=== PATIENT | male | born 1975 | race Caucasian/White ===

== ENCOUNTER 2022-05-24 22:06 | Inpatient (IN) ==
--- NOTE | 2022-05-24 22:11 | ED.PDOC ---
General ED Provider: Dr. REMIGIO SHARMA MD Chief Complaint: Abdominal Pain Stated Complaint: Patient finished a 10 day course of oral antibiotics two weeks ago for acute diverticulitis. He did well until 3 days ago when he developed recurrent LLQ pain. The pain is constant, does not radiate and is worsened by movement. Denies fever, emesis, hematochezia, diarrhea. His last BM was 3 days ago. Time Seen by Provider: 05/24/22 22:11 Primary Care Provider: RAMAN TAYLOR Nursing and Triage Documentation Reviewed and Agree: Yes Does patient meet sepsis criteria?: No System Inflammatory Response Syndrome: Not Applicable Sepsis Protocol: For patient's 13 years and over: Temp is 96.8 and below OR 101 and greater Pulse >90 BPM Resp >20/minute Acutely Altered Mental Status Are patient's symptoms suggestive of a new infection, such as: -Pneumonia -Skin, Soft Tissue -Endocarditis -UTI -Bone, Joint Infection -Implantable Device -Acute Abdominal Infection -Wound Infection -Meningitis -Blood Stream Catheter Infection -Unknown Review of Systems Review Of Systems Constitutional: Reports No symptoms Eyes: Reports No symptoms Ears, Nose, Mouth, Throat: Reports No symptoms Respiratory: Reports No symptoms Cardiac: Reports No symptoms GI: Reports Abdominal pain and Nausea : Reports Dysuria Musculoskeletal: Reports No symptoms Skin: Reports No symptoms Neurological: Reports No symptoms Endocrine: Reports No symptoms Hematologic/Lymphatic: Reports No symptoms All Other Systems: Reviewed and Negative [facility] Medical History (Updated 05/24/22 @ 23:42 by REMIGIO SHARMA MD) Diverticulitis Social History (Updated 05/24/22 @ 22:13 by MONICA WILSON RN) Smoking and tobacco status: Former smoker Surgical History (Updated 05/24/22 @ 22:13 by MONICA WILSON RN) No history of previous surgery Physical Exam Physical Exam Appearance: Reports Ill-appearing and Well-nourished Ill-appearing: Mild Pain Distress: Mild Eyes: Reports Not Examined ENT: Reports Nose normal and Oropharynx normal Neck: Supple Respiratory: Reports Airway patent, Breath sounds clear and Breath sounds equal Cardiovascular: Reports RRR, No rub and No murmur GI/: Reports Soft, No masses, Bowel sounds normal, No Organomegaly and Tender (Moderate tenderness LLQ with guarding.) Musculoskeletal: Reports Not Examined Skin: Reports Warm and Dry Neurological: Reports Alert and Oriented Psychiatric: Reports Affect appropriate and Mood appropriate Interpretation Radiology Interpretation Radiology Interpretation By: Radiologist Exam Interpreted: CT Scan (uncomplicated sigmoid diverticulitis) Critical Care Note Critical Care Note Total Critical Care Time (mins): 0 Course Course Hematology/Chemistry: 05/24/22 22:34 05/24/22 22:34 Orders, Labs, Meds: Lab Review 05/24/22 05/24/22 05/24/22 22:15 22:34 22:34 WBC 13.07 H RBC 4.89 Hgb 15.2 Hct 43.4 MCV 88.8 MCH 31.1 H MCHC 35.0 RDW Coeff of Shayla 12.5 Plt Count 210 Immature Gran % (Auto) 0.4 Neut % (Auto) 75.9 H Lymph % (Auto) 15.0 [place] % (Auto) 7.5 Eos % (Auto) 0.8 Baso % (Auto) 0.4 Neut # (Auto) 9.9 H Lymph # (Auto) 2.0 [place] # (Auto) 1.0 Eos # (Auto) 0.1 Baso # (Auto) 0.1 Immature Gran # (Auto) 0.1 Sodium 138.3 Potassium 4.00 Chloride 103.5 Carbon Dioxide 27.9 Anion Gap 10.90 BUN 19.4 Creatinine 0.91 Estimated GFR (MDRD) 91.00 BUN/Creatinine Ratio 21.31 Glucose 110.9 H Calcium 9.23 Total Bilirubin 0.63 AST 31.9 ALT 43.3 Alkaline Phosphatase 65.6 Total Protein 7.86 Albumin 4.60 Globulin 3.26 Albumin/Globulin Ratio 1.41 Urine Color Yellow Urine Clarity Clear Urine pH 5.5 Ur Specific [place] 1.025 Urine Protein Negative Urine Glucose (UA) Negative Urine Ketones Negative Urine Blood Negative Urine Nitrite Negative Urine Bilirubin Negative Urine Urobilinogen 0.2 Ur Leukocyte Esterase Negative Orders Category Date Time Status NPO REMINDER: IMAGING ONCE CARE 05/24/22 22:20 Completed Saline Lock [ED IV/MEDIPORT/POWERPORT] .ONCE EMERGENCY 05/24/22 22:19 Active BLOOD CULTURE (ED ONLY) Stat LAB 05/24/22 22:34 Received CBC W/ AUTO DIFF Stat LAB 05/24/22 22:34 Completed CMP [COMPREHENSIVE METABOLIC PANEL] Stat LAB 05/24/22 22:34 Completed SARS COV-2 RNA RAPID LOUIE Stat LAB 05/24/22 Ordered URINALYSIS C & S IF INDICATED Stat LAB 05/24/22 22:15 Completed 0.9 % Sodium Chloride [Saline Flush] MEDS 05/24/22 22:19 Active 1 syr IVF PRN PRN Hydromorphone HCl [Dilaudid 1 mg/ml Syringe] MEDS 05/24/22 22:20 Discontinued 1 mg IVP ONCE ONE Levofloxacin/D5w [Levaquin 750 mg/150 ml D5w] MEDS 05/24/22 22:25 Active 750 mg in 150 ml IV ONCE Metronidazole/Sodium Chloride [Flagyl 500 mg/100 ml] MEDS 05/24/22 22:25 Discontinued 500 mg in 100 ml IV ONCE Ondansetron HCl/Pf [Zofran 4 mg/2 ml] MEDS 05/24/22 22:19 Discontinued 8 mg IVP ONCE STA Sodium Chloride 0.9% [Sodium Chloride] 1,000 ml MEDS 05/24/22 22:[address] ABDOMEN/PELVIS W CONTRAST Stat RADS 05/24/22 22:19 Completed Medications Generic Name Dose Route Start Last Admin Trade Name Freq PRN Reason Stop Dose Admin Levofloxacin/Dextrose 750 mg in 150 mls @ 100 mls/hr 05/24/22 22:25 Levaquin 750 Mg/150 Ml D5w IV 05/24/22 23:54 ONCE ONE Sodium Chloride 1 syr 05/24/22 22:19 0.9% Sodium Chloride 10 Ml Disp.Syrin IVF PRN PRN To flush IV Discontinued Medications Generic Name Dose Route Start Last Admin Trade Name Freq PRN Reason Stop Dose Admin Hydromorphone HCl 1 mg 05/24/22 22:20 05/24/22 22:32 Hydromorphone Hcl 1 Mg/Ml Syringe IVP 05/24/22 22:21 1 mg ONCE ONE Administration Sodium Chloride 1,000 mls @ 1,000 mls/hr 05/24/22 22:19 05/24/22 22:31 Sodium Chloride IV 05/24/22 23:18 1,000 mls/hr BOLUS STA Administration Metronidazole 500 mg in 100 mls @ 100 mls/hr 05/24/22 22:25 05/24/22 22:31 Flagyl 500 Mg/100 Ml IV 05/24/22 23:24 100 mls/hr ONCE ONE Administration Ondansetron HCl 8 mg 05/24/22 22:19 05/24/22 22:32 Ondansetron Hcl/Pf 4 Mg/2 Ml Sdv IVP 05/24/22 22:20 8 mg ONCE STA Administration Vital Signs: Temp Pulse Resp BP Pulse Ox 05/24/22 22:07 99.5 F 92 18 142/96 H 96 Discharge Plan Discharge Patient Disposition: ADMITTED INPATIENT Discharge Problem: Acute diverticulitis of intestine Prescriptions: No Action No Reported Medications 0 Did you review [place] [employer] for ALL controlled substances?: Not Applicable ED Provider: REMIGIO SHARMA Condition: Stable Physician Progress Note: []
[2022-05-24] MEDS ORDERED: ZOFRAN 4 MG/2 ML IVP STA (22:19)
[2022-05-24] MEDS ORDERED: SODIUM CHLORIDE 1,000 ML IV STA (22:19)
[2022-05-24] MEDS ORDERED: DILAUDID 1 MG/ML SYRINGE IVP ONE (22:20)
[2022-05-24] MEDS ORDERED: LEVAQUIN 750 MG/150 ML D5W 750 MG/150 ML BAG IV ONE (22:25)
[2022-05-24] MEDS ORDERED: FLAGYL 500 MG/100 ML 500 MG/100 ML BAG IV ONE (22:25)
[2022-05-24 22:41] LABS: BASOPHILS # (AUTO) 0.1 K/uL (0-0.2); BASOPHILS % (AUTO) 0.4 % (0.0-3.0); EOSINOPHILS # (AUTO) 0.1 K/ul (0.0-0.7); EOSINOPHILS % (AUTO) 0.8 % (0.0-7.0); HEMATOCRIT 43.4 % (42.0-52.0); HEMOGLOBIN 15.2 g/dl (14.0-18.0); IMMATURE GRANULOCYTE # (AUTO) 0.1 (0.0-1.0); IMMATURE GRANULOCYTE % (AUTO) 0.4 % (0.0-5.0); MEAN CORPUSCULAR HEMOGLOBIN 31.1 pg (27.0-31.0); MEAN CORPUSCULAR VOLUME 88.8 fl (80.0-94.0); MONOCYTES % (AUTO) 7.5 (0-10); NEUTROPHILS # (AUTO) 9.9 K/ul (2.0-6.9); NEUTROPHILS % (AUTO) 75.9 % (42.2-75.2); PLATELET COUNT 210 10^3/uL (140-440); RDW COEFFICIENT OF VARIATION 12.5 % (11.6-14.8); RED BLOOD COUNT 4.89 10^6/ul (4.70-6.10); WHITE BLOOD COUNT 13.07 K/ul (4.2-10.2)
[2022-05-24 22:43] LABS: BILIRUBIN,URINE Negative (NEGATIVE); CLARITY,URINE Clear (CLEAR); COLOR,URINE Yellow (YELLOW); GLUCOSE, URINE (UA) Negative (NEGATIVE); KETONES,URINE Negative (NEGATIVE); LEUKOCYTE ESTERASE ,URINE Negative (NEGATIVE); NITRITE,URINE Negative (NEGATIVE); PH,URINE 5.5 (5-9); PROTEIN,URINE Negative (NEGATIVE); URINE, BLOOD Negative (NEGATIVE); UROBILINOGEN,URINE 0.2 (0.2)
[2022-05-24 22:56] LABS: ALANINE AMINOTRANSFERASE 43.3 U/L (0-50); ALBUMIN 4.6 g/dL (3.5-5.0); ALKALINE PHOSPHATASE 65.6 U/L (38-126); ASPARTATE AMINO TRANSFERASE 31.9 U/L (17-59); BILIRUBIN,TOTAL 0.63 mg/dL (0.2-1.3); BLOOD UREA NITROGEN 19.4 mg/dL (9-20); CALCIUM 9.23 mg/dL (8.4-10.2); CARBON DIOXIDE 27.9 mmol/L (22-30.0); CHLORIDE 103.5 mmol/L (98-107); CREATININE 0.91 mg/dL (0.60-1.10); GLUCOSE 110.9 mg/dL (74-106); SODIUM 138.3 mmol/L (134.5-145); TOTAL PROTEIN 7.86 g/dL (6.3-8.2)
--- NOTE | 2022-05-24 23:37 | CT ---
EXAM: CT SCAN ABDOMEN PELVIS WITH CONTRAST HISTORY: Abdominal pain recent history of diverticulitis COMPARISON: None. FINDINGS: Postcontrast helical imaging was obtained through the abdomen pelvis utilizing 5-mm collim ation. Sagittal and coronal reconstructions were imaged and reviewed.. Minimal scarring versus atel ectasis right lung base. Fatty infiltration is seen within the liver. Bladder is fluid filled witho ut cholelithiasis. The pancreas, spleen and adrenal glands have normal enhanced CT appearance. The kidneys excrete contrast in a normal fashion bilaterally. Diverticulitis is seen in the mid sigmoid colon without complication. No free fluid. 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 IMPRESSION: Uncomplicated diverticulitis mid sigmoid colon. Fatty infiltration within the liver. All CT scans are performed using dose optimization techniques as appropriate to the performed exam an d include at least one of the following: Automated exposure control, adjustment of the mA and/or kV according t o size, and the use of iterative reconstruction technique.
[2022-05-24] MEDS ORDERED: ZOFRAN 4 MG/2 ML IVP PRN (23:46)
--- NOTE | 2022-05-24 23:55 | PCM ---
Chief Complaint Chief Complaint: lower abdominal pain History of Present Illness History of Present Illness: Patient recently treated for acute sigmoid diverticulitis. He completed a 10 day outpatient course of flagyl and what sounds to be levaquin. Patient did well until 3 days ago when he again developed LLQ abd pain that has progressively worsened. CT abd/pelvis demonstrated uncomplicated acute sigmoid diverticulitis. Review of Systems Constitutional: Reports No symptoms Eyes: Reports No symptoms Ears: Reports No symptoms Nose: Reports No symptoms Throat: Reports No symptoms Mouth: Reports No symptoms Respiratory: Reports No symptoms Cardiovascular: Reports No symptoms Gastrointestinal: Reports Abdominal pain and Nausea Genitourinary: Reports dysuria Neurological: Reports No symptoms Musculoskeletal: Reports No symptoms Skin: Reports No symptoms Immunology: Reports No symptoms Hematology: Reports No symptoms Endocrine: Reports No symptoms Psychiatric: Reports No symptoms Habits: Reports Tobacco use Allergies Allergies Allergy/AdvReac Type Severity Reaction Status Date / Time No Known Allergies Allergy Unverified 09/17/13 15:58 [facility] Medical History (Updated 05/24/22 @ 23:42 by REMIGIO SHARMA MD) Diverticulitis Surgical History (Updated 05/24/22 @ 22:13 by MONICA WILSON RN) No history of previous surgery Social History (Updated 05/24/22 @ 22:13 by MONICA WILSON RN) Smoking and tobacco status: Former smoker Medications Medications: Medications Generic Name Dose Route Start Last Admin Trade Name Freq PRN Reason Stop Dose Admin Levofloxacin/Dextrose 750 mg in 150 mls @ 100 mls/hr 05/24/22 22:25 Levaquin 750 Mg/150 Ml D5w IV 05/24/22 23:54 ONCE ONE Sodium Chloride 1 syr 05/24/22 22:19 0.9% Sodium Chloride 10 Ml Disp.Syrin IVF PRN PRN To flush IV Body Composition Height: 5 ft 10 in Weight: 112.207 kg Body Mass Index (BMI): 35.4 Vital Signs Temperature: 99.5 F Pulse Rate: 92 Respiratory Rate: 18 Blood Pressure: 142/96 O2 Sat by Pulse Oximetry: 96 Physical Examination Appearance: Reports Ill-appearing and Well-nourished Ill-appearing: Moderate Pain Distress: Moderate Eyes: Reports Not Examined ENT: Reports Nose normal, Oropharynx normal and Dry mucosa Neck: Supple Respiratory: Reports Airway patent, Breath sounds clear and Breath sounds equal Cardiovascular: Reports RRR, No rub and No murmur GI/: Reports Soft, No masses, Bowel sounds normal and Tender (Moderate LLQ tenderness with guarding.) Musculoskeletal: Reports Normal strength, ROM intact and No edema Skin: Reports Warm, Dry and Normal color Neurological: Reports Alert and Oriented Psychiatric: Reports Affect appropriate and Mood appropriate Lab/Tests/Diagnostic Imaging Lab/Tests/Diagnostic Imaging: Lab Review 05/24/22 05/24/22 05/24/22 22:15 22:34 22:34 WBC 13.07 H RBC 4.89 Hgb 15.2 Hct 43.4 MCV 88.8 MCH 31.1 H MCHC 35.0 RDW Coeff of Shayla 12.5 Plt Count 210 Immature Gran % (Auto) 0.4 Neut % (Auto) 75.9 H Lymph % (Auto) 15.0 [place] % (Auto) 7.5 Eos % (Auto) 0.8 Baso % (Auto) 0.4 Neut # (Auto) 9.9 H Lymph # (Auto) 2.0 [place] # (Auto) 1.0 Eos # (Auto) 0.1 Baso # (Auto) 0.1 Immature Gran # (Auto) 0.1 Sodium 138.3 Potassium 4.00 Chloride 103.5 Carbon Dioxide 27.9 Anion Gap 10.90 BUN 19.4 Creatinine 0.91 Estimated GFR (MDRD) 91.00 BUN/Creatinine Ratio 21.31 Glucose 110.9 H Calcium 9.23 Total Bilirubin 0.63 AST 31.9 ALT 43.3 Alkaline Phosphatase 65.6 Total Protein 7.86 Albumin 4.60 Globulin 3.26 Albumin/Globulin Ratio 1.41 Urine Color Yellow Urine Clarity Clear Urine pH 5.5 Ur Specific [place] 1.025 Urine Protein Negative Urine Glucose (UA) Negative Urine Ketones Negative Urine Blood Negative Urine Nitrite Negative Urine Bilirubin Negative Urine Urobilinogen 0.2 Ur Leukocyte Esterase Negative Orders Category Date Time Status ADMIT PATIENT INPATIENT .TO [facility] (NON-MONITORED ADMISSION 05/24/22 23:46 Ordered BED) ACTIVITY .Up ad Leti CARE 05/24/22 23:46 Ordered INTAKE & OUTPUT Q8HR CARE 05/24/22 23:46 Ordered IP: INSERT SALINE LOCK ONCE CARE 05/24/22 23:46 Ordered NPO REMINDER: IMAGING ONCE CARE 05/24/22 22:20 Completed VITAL SIGNS Q4HR CARE 05/24/22 23:47 Ordered VITAL SIGNS Q8HR CARE 05/24/22 23:46 Ordered SOFT LOW FIBER DIETARY 05/24/22 Breakfast Ordered Saline Lock [ED IV/MEDIPORT/POWERPORT] .ONCE EMERGENCY 05/24/22 22:19 Active BLOOD CULTURE (ED ONLY) Stat LAB 05/24/22 22:34 Received CBC W/ AUTO DIFF Stat LAB 05/24/22 22:34 Completed CMP [COMPREHENSIVE METABOLIC PANEL] Stat LAB 05/24/22 22:34 Completed SARS COV-2 RNA RAPID LOUIE Stat LAB 05/24/22 Ordered URINALYSIS C & S IF INDICATED Stat LAB 05/24/22 22:15 Completed 0.9 % Sodium Chloride [Saline Flush] MEDS 05/24/22 22:19 Active 1 syr IVF PRN PRN 500 mg IV Q8hr [facility] MEDS 05/25/22 05:00 Ordered Metronidazole/Sodium Chloride [Flagyl 500 mg/100 ml] 500 mg in 100 ml IV Q8HR 750 mg IV Daily [facility] MEDS 05/25/22 09:00 Ordered Levofloxacin/D5w [Levaquin 750 mg/150 ml D5w] 750 mg in 150 ml IV DAILY Hydromorphone HCl [Dilaudid 1 mg/ml Syringe] MEDS 05/24/22 22:20 Discontinued 1 mg IVP ONCE ONE Hydromorphone HCl [Dilaudid 1 mg/ml Syringe] MEDS 05/24/22 23:46 Ordered 1 mg IVP Q4HR PRN Levofloxacin/D5w [Levaquin 750 mg/150 ml D5w] MEDS 05/24/22 22:25 Active 750 mg in 150 ml IV ONCE Metronidazole/Sodium Chloride [Flagyl 500 mg/100 ml] MEDS 05/24/22 22:25 Discontinued 500 mg in 100 ml IV ONCE Ondansetron HCl/Pf [Zofran 4 mg/2 ml] MEDS 05/24/22 22:19 Discontinued 8 mg IVP ONCE STA Ondansetron HCl/Pf [Zofran 4 mg/2 ml] MEDS 05/24/22 23:46 Ordered 8 mg IVP Q8H PRN Sodium Chloride 0.9% [Sodium Chloride] 1,000 ml MEDS 05/24/22 23:45 Ordered IV 125 mls/hr Sodium Chloride 0.9% [Sodium Chloride] 1,000 ml MEDS 05/24/22 22:19 Discontinued IV BOLUS RESUSCITATION STATUS Routine OTHERS 05/24/22 23:[address] ABDOMEN/PELVIS W CONTRAST Stat RADS 05/24/22 22:19 Completed Medications Generic Name Dose Route Start Last Admin Trade Name Freq PRN Reason Stop Dose Admin Levofloxacin/Dextrose 750 mg in 150 mls @ 100 mls/hr 05/24/22 22:25 Levaquin 750 Mg/150 Ml D5w IV 05/24/22 23:54 ONCE ONE Sodium Chloride 1 syr 05/24/22 22:19 0.9% Sodium Chloride 10 Ml Disp.Syrin IVF PRN PRN To flush IV Discontinued Medications Generic Name Dose Route Start Last Admin Trade Name Freq PRN Reason Stop Dose Admin Hydromorphone HCl 1 mg 05/24/22 22:20 05/24/22 22:32 Hydromorphone Hcl 1 Mg/Ml Syringe IVP 05/24/22 22:21 1 mg ONCE ONE Administration Sodium Chloride 1,000 mls @ 1,000 mls/hr 05/24/22 22:19 05/24/22 22:31 Sodium Chloride IV 05/24/22 23:18 1,000 mls/hr BOLUS STA Administration Metronidazole 500 mg in 100 mls @ 100 mls/hr 05/24/22 22:25 05/24/22 22:31 Flagyl 500 Mg/100 Ml IV 05/24/22 23:24 100 mls/hr ONCE ONE Administration Ondansetron HCl 8 mg 05/24/22 22:19 05/24/22 22:32 Ondansetron Hcl/Pf 4 Mg/2 Ml Sdv IVP 05/24/22 22:20 8 mg ONCE STA Administration Assessment (1) Acute diverticulitis of intestine: Status: Acute Code(s): K57.92 - Diverticulitis of intestine, part unspecified, without perforation or abscess without bleeding SNOMED Code(s): 170128097 Plan Plan: Patient will be admitted for IV antibiotic therapy, pain control and IV fluid hydration.
[2022-05-24 23:57] LABS: SARS COV-2 RNA RAPID NAAT NEGATIVE (NEGATIVE)
[2022-05-25] MEDS: SODIUM CHLORIDE 1,000 ML IV SCH ×3 (01:19→18:42)
[2022-05-25 01:20] VITALS: BMI 34.9
[2022-05-25] MEDS: DILAUDID 1 MG/ML SYRINGE IVP PRN ×4 (02:11→18:41)
[2022-05-25] MEDS: FLAGYL 500 MG/100 ML 500 MG/100 ML BAG IV SCH ×3 (04:26→20:43)
--- NOTE | 2022-05-25 08:42 | PCM.PROG ---
Date Seen by Provider: 05/25/22 Time Seen by Provider: 07:35 Subjective: Some lower abdominal pains during the night. Had small BM and urinated since. Says he had a colonoscopy scheduled at [facility] this coming week.Explained he will needto contact them on friday and update the office on his current admission and schedule an office follow up with GI. This is his third episode : September last year, May 06, & current .Was symptom free after this past 10 day treatment then three days ago sx recurred. No current black or bloody stools, fever , chills ,nausea / vomiting treatment recurred after completion of oral antibiotics levaquin and flagyl po . Discussed I would repeat labs today to assess WBC and chemistries after receiving meds and fluids. .Discussed probiotics and omeprazole for GI protection , lovenox for dvt prevention ( no hx of any bleeding occurrances or recent surgery ), continuation of IV fluids for hydration and IV antibiotics. Objective: Vitals: T=97.0 F, P=64, R=18, JP=655/70, SPO2=96 HEENT: [speech normal, no icterus, head normocephalic ] Neck: [no pain no jvd] Lungs: [clear bilaterally ] CVS: [regular no murmur ] Abdomen: [bs present . Tenderness suprapubic. No rigidity This is where he experienced diverticulitis in the past and in past was attributed to a uti ] Extremities: [no edema or pain ] Neurological: [alert / oriented x3 ] Skin: [no rash ] Lab/Tests/Diagnostic Imaging: [CT a/p with contrast showed mid colon diverticulitis no perf , fluid or absess or obstruction, fatty infiltration , glucose 110 ] (1) Acute diverticulitis of intestine: Status: Acute Code(s): K57.92 - Diverticulitis of intestine, part unspecified, without perforation or abscess without bleeding SNOMED Code(s): 064367928 (2) Fatty infiltration of liver: Status: Acute Code(s): K76.0 - Fatty (change of) liver, not elsewhere classified SNOMED Code(s): 519630101 Assessment: obesity (3) Obesity (BMI 30.0-34.9): Status: Acute Code(s): E66.9 - Obesity, unspecified SNOMED Code(s): 693806350648695 Plan: 1.Diverticulitis : IV levaquin 750 mg daily / flagyl 500mg IV qid 2.Pain - dilaudid 1 mg IV q 6 hrs prn ( reduced from q 4 hrs ) 3.GI -probiotic bid 4.GI - 0meprazole 30mg po daily 5.DVT prophylaxis - lovenox 40mg subq daily 6.AM 2/11 lab CBC ,cmp , ( trend wbc and chemistries ) lipid panel , hemoglobin A1C ( A1C for glucos / liver , lipid for liver ) 7.Hydration NS 125/hr ( GI infection ) 8. Report to Dr. Jacome at shift change
[2022-05-25] MEDS ORDERED: ZOFRAN 4 MG/2 ML IVP PRN (09:25)
[2022-05-25 09:41] LABS: BASOPHILS % (AUTO) 0.4 % (0.0-3.0); EOSINOPHILS # (AUTO) 0.1 K/ul (0.0-0.7); EOSINOPHILS % (AUTO) 0.8 % (0.0-7.0); HEMATOCRIT 42.3 % (42.0-52.0); HEMOGLOBIN 14.7 g/dl (14.0-18.0); IMMATURE GRANULOCYTE % (AUTO) 0.4 % (0.0-5.0); LYMPHOCYTES # (AUTO) 1.5 K/uL (0.60-3.4); LYMPHOCYTES % (AUTO) 13.2 (10.0-50.0); MEAN CORPUSCULAR HEMOGLOBIN 31.1 pg (27.0-31.0); MEAN CORPUSCULAR HGB CONC 34.8 (31.8-35.4); MEAN CORPUSCULAR VOLUME 89.4 fl (80.0-94.0); MONOCYTES # (AUTO) 0.9 K/uL (0.4-2.0); MONOCYTES % (AUTO) 7.8 (0-10); NEUTROPHILS # (AUTO) 8.7 K/ul (2.0-6.9); NEUTROPHILS % (AUTO) 77.4 % (42.2-75.2); PLATELET COUNT 185 10^3/uL (140-440); RDW COEFFICIENT OF VARIATION 12.4 % (11.6-14.8); RED BLOOD COUNT 4.73 10^6/ul (4.70-6.10)
[2022-05-25 09:51] LABS: ALANINE AMINOTRANSFERASE 34.4 U/L (0-50); ALBUMIN 4.18 g/dL (3.5-5.0); ALKALINE PHOSPHATASE 62.2 U/L (38-126); ASPARTATE AMINO TRANSFERASE 22.2 U/L (17-59); BILIRUBIN,TOTAL 0.9 mg/dL (0.2-1.3); CALCIUM 8.6 mg/dL (8.4-10.2); CARBON DIOXIDE 27.6 mmol/L (22-30.0); CHLORIDE 103.5 mmol/L (98-107); CREATININE 0.97 mg/dL (0.60-1.10); GLUCOSE 109.8 mg/dL (74-106); POTASSIUM 4.14 mmol/L (3.5-5.1); SODIUM 136.8 mmol/L (134.5-145); TOTAL PROTEIN 7.17 g/dL (6.3-8.2)
[2022-05-25] MEDS: PRILOSEC PO SCH (10:00)
[2022-05-25] MEDS: FLORASTOR PO SCH ×2 (10:00→20:42)
[2022-05-25] MEDS: LOVENOX SUBCUT SCH (10:00)
[2022-05-25] MEDS: LEVAQUIN 750 MG/150 ML D5W 750 MG/150 ML BAG IV SCH (22:07)
[2022-05-26] MEDS: DILAUDID 1 MG/ML SYRINGE IVP PRN ×4 (03:32→22:41)
[2022-05-26] MEDS: FLAGYL 500 MG/100 ML 500 MG/100 ML BAG IV SCH ×3 (05:31→20:09)
[2022-05-26] MEDS: PRILOSEC PO SCH (05:31)
[2022-05-26 05:38] LABS: BASOPHILS % (AUTO) 0.4 % (0.0-3.0); EOSINOPHILS # (AUTO) 0.1 K/ul (0.0-0.7); EOSINOPHILS % (AUTO) 0.9 % (0.0-7.0); HEMATOCRIT 39.8 % (42.0-52.0); HEMOGLOBIN 13.5 g/dl (14.0-18.0); IMMATURE GRANULOCYTE % (AUTO) 0.3 % (0.0-5.0); LYMPHOCYTES # (AUTO) 1.4 K/uL (0.60-3.4); LYMPHOCYTES % (AUTO) 15.5 (10.0-50.0); MEAN CORPUSCULAR HEMOGLOBIN 30.5 pg (27.0-31.0); MEAN CORPUSCULAR HGB CONC 33.9 (31.8-35.4); MEAN CORPUSCULAR VOLUME 89.8 fl (80.0-94.0); MONOCYTES # (AUTO) 0.7 K/uL (0.4-2.0); MONOCYTES % (AUTO) 7.1 (0-10); NEUTROPHILS # (AUTO) 7.1 K/ul (2.0-6.9); NEUTROPHILS % (AUTO) 75.8 % (42.2-75.2); PLATELET COUNT 173 10^3/uL (140-440); RDW COEFFICIENT OF VARIATION 12.2 % (11.6-14.8); RED BLOOD COUNT 4.43 10^6/ul (4.70-6.10); WHITE BLOOD COUNT 9.32 K/ul (4.2-10.2)
[2022-05-26 05:52] LABS: ALANINE AMINOTRANSFERASE 29.2 U/L (0-50); ALBUMIN 3.99 g/dL (3.5-5.0); ALKALINE PHOSPHATASE 58.2 U/L (38-126); ASPARTATE AMINO TRANSFERASE 20.6 U/L (17-59); BILIRUBIN,TOTAL 0.72 mg/dL (0.2-1.3); BLOOD UREA NITROGEN 11.8 mg/dL (9-20); CALCIUM 8.53 mg/dL (8.4-10.2); CARBON DIOXIDE 25.3 mmol/L (22-30.0); CHOLESTEROL 201.8 mg/dL (0-200); CREATININE 0.96 mg/dL (0.60-1.10); GLUCOSE 112.1 mg/dL (74-106); POTASSIUM 4.26 mmol/L (3.5-5.1); SODIUM 137.8 mmol/L (134.5-145); TOTAL PROTEIN 7.03 g/dL (6.3-8.2); TRIGLYCERIDES 67.4 mg/dL (0-150)
[2022-05-26] MEDS: SODIUM CHLORIDE 1,000 ML IV SCH ×2 (06:42→15:47)
[2022-05-26] MEDS: FLORASTOR PO SCH ×2 (09:18→20:09)
[2022-05-26] MEDS: LOVENOX SUBCUT SCH (09:18)
[2022-05-26] MEDS ORDERED: DULCOLAX PO PRN (10:25)
--- NOTE | 2022-05-26 12:11 | PCM.PROG ---
Date Seen by Provider: 05/26/22 Time Seen by Provider: 12:10 Subjective: Better appetite today , some constipation ( has had also in past ) , less suprapubic pain today.Is motivated to changing diet. Wanting to meet with drafter civil to reduce reoccurance of diverticulosis ( Consult already written) wbc 9.3, BC prelim neg , glu 112 , AiC 5.4 Objective: Vitals: T=96.7 F, P=69, R=18, HO=356/67, SPO2=97 HEENT: [no icterus, speech normal ] Neck: [supple] Lungs: [clear ] CVS: [regular] Abdomen: [bs present . less tender today over suprapubic ] Extremities: [no edema] Neurological: [alert oriented times 3 ] Skin: [no rash ] Lab/Tests/Diagnostic Imaging: [wbc 9.3, BC prelim neg , glu 112 , AiC 5.4] (1) Acute diverticulitis of intestine: Status: Acute Code(s): K57.92 - Diverticulitis of intestine, part unspecified, without perforation or abscess without bleeding SNOMED Code(s): 566975111 (2) Fatty infiltration of liver: Status: Acute Code(s): K76.0 - Fatty (change of) liver, not elsewhere classified SNOMED Code(s): 708349972 (3) Obesity (BMI 30.0-34.9): Status: Acute Code(s): E66.9 - Obesity, unspecified SNOMED Code(s): 278873843306590 Plan: 1.Prevention - pt to meet with drafter civil 2.DVT - lovenox 3 GI -omeprazole 4.Diverticulitis - Levaquin& flagyl IV - consider de-escalation to oral day #4-5 5.Constipation - add dulcolax 6.Labs - procal for antibiotic descalation guidance , cbc , bmp 7.GI - will need GI follow up as colonoscopy ws scheduled for this week as outpatient [address] Gutierrez at shift change
[2022-05-26] MEDS: LEVAQUIN 750 MG/150 ML D5W 750 MG/150 ML BAG IV SCH (21:16)
[2022-05-27] MEDS: SODIUM CHLORIDE 1,000 ML IV SCH (03:12)
[2022-05-27 05:13] VITALS: BP 129/79; TEMP 97.1
[2022-05-27] MEDS: FLAGYL 500 MG/100 ML 500 MG/100 ML BAG IV SCH (05:19)
[2022-05-27] MEDS: PRILOSEC PO SCH (05:34)
[2022-05-27 05:35] LABS: BASOPHILS # (AUTO) 0.1 K/uL (0-0.2); BASOPHILS % (AUTO) 0.7 % (0.0-3.0); EOSINOPHILS # (AUTO) 0.1 K/ul (0.0-0.7); EOSINOPHILS % (AUTO) 1.9 % (0.0-7.0); HEMATOCRIT 40.1 % (42.0-52.0); HEMOGLOBIN 13.6 g/dl (14.0-18.0); IMMATURE GRANULOCYTE % (AUTO) 0.3 % (0.0-5.0); LYMPHOCYTES # (AUTO) 1.6 K/uL (0.60-3.4); LYMPHOCYTES % (AUTO) 23.2 (10.0-50.0); MEAN CORPUSCULAR HEMOGLOBIN 30.4 pg (27.0-31.0); MEAN CORPUSCULAR HGB CONC 33.9 (31.8-35.4); MEAN CORPUSCULAR VOLUME 89.7 fl (80.0-94.0); MONOCYTES # (AUTO) 0.6 K/uL (0.4-2.0); MONOCYTES % (AUTO) 9.4 (0-10); NEUTROPHILS # (AUTO) 4.4 K/ul (2.0-6.9); NEUTROPHILS % (AUTO) 64.5 % (42.2-75.2); PLATELET COUNT 172 10^3/uL (140-440); RDW COEFFICIENT OF VARIATION 12.2 % (11.6-14.8); RED BLOOD COUNT 4.47 10^6/ul (4.70-6.10); WHITE BLOOD COUNT 6.82 K/ul (4.2-10.2)
[2022-05-27 05:57] LABS: BLOOD UREA NITROGEN 12.5 mg/dL (9-20); CALCIUM 8.94 mg/dL (8.4-10.2); CARBON DIOXIDE 26.8 mmol/L (22-30.0); CHLORIDE 105.7 mmol/L (98-107); CREATININE 1.04 mg/dL (0.60-1.10); GLUCOSE 106.3 mg/dL (74-106); POTASSIUM 4.23 mmol/L (3.5-5.1)
[2022-05-27] MEDS: FLORASTOR PO SCH (08:33)
[2022-05-27] MEDS: LOVENOX SUBCUT SCH (08:35)
--- NOTE | 2022-05-27 09:05 | PCM.PROG ---
Date Seen by Provider: 05/27/22 Time Seen by Provider: 08:50 Subjective: Patient feeling much better. Tolerating diet. Having normal BMs. Not requiring narcotic analgesics. Objective: Vitals: T=97.1 F, P=57, R=18, EW=337/79, SPO2=98 Patient alert and in NAD. Appears well. HEENT: [] Oral mucosa moist. Neck: [] Lungs: [] Chest clear. BS equal. CVS: [] RRR Abdomen: [] Soft and nontender. Extremities: [] Neurological: [] Skin: [] Lab/Tests/Diagnostic Imaging: [] (1) Acute diverticulitis of intestine: Status: Acute Code(s): K57.92 - Diverticulitis of intestine, part unspecified, without perforation or abscess without bleeding SNOMED Code(s): 456110708 Assessment: Much improved. (2) Fatty infiltration of liver: Status: Acute Code(s): K76.0 - Fatty (change of) liver, not elsewhere classified SNOMED Code(s): 142669626 (3) Obesity (BMI 30.0-34.9): Status: Acute Code(s): E66.9 - Obesity, unspecified SNOMED Code(s): 883972864947585 Plan: Discharge patient on flagyl and levaquin. Follow up with Dr Jacome in one week.
--- NOTE | 2022-05-27 09:08 | PCM.DC ---
Final Diagnosis: acute sigmoid diverticulitis Physical Exam Appearance: Well-appearing, No pain distress and Well-nourished Ill-appearing: None Pain Distress: None Eyes: Not Examined ENT: Nose normal and Oropharynx normal Neck: Supple Respiratory: Airway patent, Breath sounds clear and Breath sounds equal Cardiovascular: No rub and No murmur GI/: Soft, Nontender, No masses, Bowel sounds normal and No Organomegaly Musculoskeletal: Normal strength, ROM intact and No edema Skin: Warm, Dry and Normal color Neurological: Motor intact, Alert and Oriented Psychiatric: Affect appropriate and Mood appropriate (1) Acute diverticulitis of intestine: Status: Acute Code(s): K57.92 - Diverticulitis of intestine, part unspecified, without perforation or abscess without bleeding SNOMED Code(s): 008208821 (2) Fatty infiltration of liver: Status: Acute Code(s): K76.0 - Fatty (change of) liver, not elsewhere classified SNOMED Code(s): 441380368 (3) Obesity (BMI 30.0-34.9): Status: Acute Code(s): E66.9 - Obesity, unspecified SNOMED Code(s): 105039680674144 Reason for Hospitalization: Patient admitted with acute sigmoid diverticulitis. He failed outpatient oral antibiotic therapy for this. Prognosis/Condition at Discharge: Condition at discharge was good. Medications at Discharge: Patient discharged on flagyl and levaquin in addition to his prior preadmission medications. Lab/Diagnostics: CT abd/pelvis demonstrated noncomplicated acute sigmoid diverticulitis. WBC was normal at discharge. Education Provided to Patient and Family: acute diverticulitis Follow-ups: Follow up with Dr Jacome in one week. Discharge Disposition: Home Hospital Course: Patient admitted with noncomplicated acute sigmoid diverticulitis that failed to resolve on outpatient oral antibiotics. He was treated with IV flagyl and IV levaquin. Patient demonstrated good clinical response and was discharged on the 3rd postadmission day in good condition. Plan: Follow up with Dr Jacome in one week.
== END 2022-05-27 09:45 | disposition home or self-care (01) | DRG 392 ==
LOC: ED 22:06 → MEDSURG A 05-25
PROVIDERS: ADMIT Surgery; ATTEND Surgery
DX: K57.92 Diverticulitis of intestine, part unspecified, without perforation or abscess without bleeding; Z79.899 Other long term (current) drug therapy; K76.0 Fatty (change of) liver, not elsewhere classified; Z51.81 Encounter for therapeutic drug level monitoring; Z20.822 Contact with and (suspected) exposure to COVID-19; E66.9 Obesity, unspecified

== ENCOUNTER 2022-06-05 20:08 | Inpatient (IN) ==
[2022-06-05] MEDS ORDERED: DILAUDID 1 MG/ML SYRINGE IVP STA (20:46)
[2022-06-05] MEDS ORDERED: TORADOL IVP STA (20:46)
[2022-06-05] MEDS ORDERED: SODIUM CHLORIDE 1,000 ML IV STA (20:46)
--- NOTE | 2022-06-05 20:52 | ED.PDOC ---
General ED Provider: Dr. JING KAPOOR Chief Complaint: Fever Stated Complaint: Patient is a 46-year-old who comes to the ER with lower mid abdominal pain. Was seen recently and treated for Diverticulitis with antibiotics. has seen a GI doctor and is scheduled to get a colonoscopy in June. States the pain came back today and is severe. Time Seen by Provider: 06/05/22 20:46 Mode of Arrival: Walk-In Information Source: Patient Primary Care Provider: RAMAN TAYLOR Nursing and Triage Documentation Reviewed and Agree: Yes Does patient meet sepsis criteria?: No System Inflammatory Response Syndrome: Not Applicable Sepsis Protocol: For patient's 13 years and over: Temp is 96.8 and below OR 101 and greater Pulse >90 BPM Resp >20/minute Acutely Altered Mental Status Are patient's symptoms suggestive of a new infection, such as: -Pneumonia -Skin, Soft Tissue -Endocarditis -UTI -Bone, Joint Infection -Implantable Device -Acute Abdominal Infection -Wound Infection -Meningitis -Blood Stream Catheter Infection -Unknown GI Complaint Exam Abdominal Pain Complaint/Exam Onset: Gradual Duration: one day Symptoms Are: Still present Timing: Constant Initial Severity: Moderate Current Severity: Severe Location of Pain: LLQ and Suprapubic Character: Reports Dull and Aching Aggravating: Reports Movement Alleviating: Reports None Associated Signs and Symptoms: Reports Constipation; Denies Nausea, Vomiting or Diarrhea Review of Systems Review Of Systems Constitutional: Reports No symptoms Eyes: Reports No symptoms Ears, Nose, Mouth, Throat: Reports No symptoms Respiratory: Reports No symptoms GI: Reports Abdominal pain and Constipated : Denies Dysuria, Frequency or Flank pain Skin: Reports No symptoms Neurological: Reports Anxiety Hematologic/Lymphatic: Reports No symptoms All Other Systems: Reviewed and Negative [facility] Medical History (Updated 06/05/22 @ 22:33 by JING KAPOOR MD) Diverticulitis Gout Leaky heart valve Family History FATHER COPD (chronic obstructive pulmonary disease) Social History (Updated 06/05/22 @ 20:27 by GIN KARIMI LPN) Smoking and tobacco status: Former smoker Alcohol intake: current Alcohol intake frequency: a few times a month Alcohol type: wine Surgical History (Updated 06/05/22 @ 20:26 by GIN KARIMI LPN) History of vasectomy Physical Exam Physical Exam Appearance: Reports Ill-appearing Ill-appearing: Mild Pain Distress: Severe Eyes: Reports GEORGETTE, EOMI and Conjunctiva clear ENT: Reports Nose normal and Oropharynx normal Neck: Supple Respiratory: Reports Airway patent, Breath sounds clear, Breath sounds equal and Respirations nonlabored Cardiovascular: Reports No rub and Tachycardia GI/: Reports Soft and Tender Musculoskeletal: Reports Normal strength and ROM intact Skin: Reports Warm and Dry Neurological: Reports Motor intact, Alert and Oriented Psychiatric: Reports Anxious Interpretation Radiology Interpretation Radiology Interpretation By: Radiologist Radiology Results: Positive (1. Diverticulosis of the descending colon and sigmoid colon. Diffuse thickening of the wall of the mid sigmoid colon with marked adjacent mesenteric edema. Microperforation with gas bubble measuring 4 mm. The appearance is worse than seen on 05/24/2022. This is likely due to diverticulitis. Ne) Exam Interpreted: CT Scan Physician Notification Case Discussed Physician Notified: Surgeon Dr Calzada at [facility] Time of Notification: 22:00 (not a surgical candidate, can be managed medically due to small size of microperforation. ) Critical Care Note Critical Care Note Total Critical Care Time (mins): 0 Course Course Hematology/Chemistry: 06/05/22 20:54 06/05/22 20:54 Orders, Labs, Meds: Lab Review 06/05/22 06/05/22 06/05/22 20:54 20:54 21:15 WBC 14.86 H RBC 4.67 L Hgb 14.4 Hct 41.5 L MCV 88.9 MCH 30.8 MCHC 34.7 RDW Coeff of Shayla 12.5 Plt Count 232 Immature Gran % (Auto) 0.4 Neut % (Auto) 83.2 H Lymph % (Auto) 9.4 L [place] % (Auto) 6.4 Eos % (Auto) 0.2 Baso % (Auto) 0.4 Neut # (Auto) 12.4 H Lymph # (Auto) 1.4 [place] # (Auto) 1.0 Eos # (Auto) 0.0 Baso # (Auto) 0.1 Immature Gran # (Auto) 0.1 Sodium 138.1 Potassium 4.14 Chloride 102.2 Carbon Dioxide 29.4 Anion Gap 10.64 BUN 17.9 Creatinine 1.04 Estimated GFR (MDRD) 78.00 BUN/Creatinine Ratio 17.21 Glucose 118.7 H Calcium 8.96 Total Bilirubin 0.61 AST 23.6 ALT 23.5 Alkaline Phosphatase 62.9 Total Protein 7.43 Albumin 4.38 Globulin 3.05 Albumin/Globulin Ratio 1.43 Amylase 63.7 Lipase 50.2 Urine Color Urine Clarity Urine pH Ur Specific [place] Urine Protein Urine Glucose (UA) Urine Ketones Urine Blood Urine Nitrite Urine Bilirubin Urine Urobilinogen Ur Leukocyte Esterase SARS CoV-2 RNA Rapid LOUIE Negative 06/05/22 21:51 WBC RBC Hgb Hct MCV MCH MCHC RDW Coeff of Shayla Plt Count Immature Gran % (Auto) Neut % (Auto) Lymph % (Auto) [place] % (Auto) Eos % (Auto) Baso % (Auto) Neut # (Auto) Lymph # (Auto) [place] # (Auto) Eos # (Auto) Baso # (Auto) Immature Gran # (Auto) Sodium Potassium Chloride Carbon Dioxide Anion Gap BUN Creatinine Estimated GFR (MDRD) BUN/Creatinine Ratio Glucose Calcium Total Bilirubin AST ALT Alkaline Phosphatase Total Protein Albumin Globulin Albumin/Globulin Ratio Amylase Lipase Urine Color Yellow Urine Clarity Clear Urine pH 5.5 Ur Specific [place] >=1.030 Urine Protein Negative Urine Glucose (UA) Negative Urine Ketones Trace H Urine Blood Negative Urine Nitrite Negative Urine Bilirubin Negative Urine Urobilinogen 0.2 Ur Leukocyte Esterase Negative SARS CoV-2 RNA Rapid LOUIE Orders Category Date Time Status ADMIT PATIENT INPATIENT .TO [facility] (MONITORED BED) ADMISSION 06/05/22 22:42 Active ACTIVITY .Up ad Leti CARE 06/05/22 22:44 Active INTAKE & OUTPUT Q8HR CARE 06/05/22 22:42 Active TELEMETRY MONITORING TELE CARE 06/05/22 22:43 Active VITAL SIGNS Q4HR CARE 06/05/22 22:43 Active REGULAR DIET DIETARY 06/05/22 Breakfast Ordered ED IV/MEDIPORT/POWERPORT .ONCE EMERGENCY 06/05/22 20:46 Active AMYLASE Stat LAB 06/05/22 20:54 Completed CBC W/ AUTO DIFF DAILY@0600 LAB 06/06/22 06:00 Ordered CBC W/ AUTO DIFF DAILY@0600 LAB 06/07/22 06:00 Ordered CBC W/ AUTO DIFF Stat LAB 06/05/22 20:54 Completed COMPREHENSIVE METABOLIC PANEL DAILY@0600 LAB 06/06/22 06:00 Ordered COMPREHENSIVE METABOLIC PANEL DAILY@0600 LAB 06/07/22 06:00 Ordered COMPREHENSIVE METABOLIC PANEL Stat LAB 06/05/22 20:54 Completed LIPASE Stat LAB 06/05/22 20:54 Completed SARS COV-2 RNA RAPID LOUIE Stat LAB 06/05/22 21:15 Completed URINALYSIS C & S IF INDICATED Stat LAB 06/05/22 21:51 Completed 0.9 % Sodium Chloride [Saline Flush] MEDS 06/05/22 20:46 Active 1 syr IVF PRN PRN Enoxaparin Sodium [Lovenox] MEDS 06/06/22 09:00 Active 40 mg SUBCUT DAILY Hydromorphone HCl [Dilaudid 1 mg/ml Syringe] MEDS 06/05/22 20:46 Discontinued 1 mg IVP ONCE STA Hydromorphone HCl [Dilaudid 1 mg/ml Syringe] MEDS 06/05/22 22:42 Active 1 mg IVP Q4HR PRN Ketorolac Tromethamine [Toradol] MEDS 06/05/22 20:46 Discontinued 30 mg IVP ONCE STA Ondansetron HCl/Pf [Zofran 4 mg/2 ml] MEDS 06/05/22 22:42 Active 4 mg IVP Q6H PRN Piperacillin Sodium/Tazobactam [Zosyn 3.375 gm] 3.375 MEDS 06/05/22 22:02 Discontinued gm 0.9 % Sodium Chloride [Sodium Chloride 100Ml] 100 ml IV ONCE Piperacillin Sodium/Tazobactam [Zosyn 3.375 gm] 3.375 MEDS 06/06/22 06:00 Active gm 0.9 % Sodium Chloride [Sodium Chloride 100Ml] 50 ml IV Q6HR Sodium Chloride 0.9% [Sodium Chloride] 1,000 ml MEDS 06/05/22 23:00 Active IV 125 mls/hr Sodium Chloride 0.9% [Sodium Chloride] 1,000 ml MEDS 06/05/22 20:46 Discontinued IV BOLUS RESUSCITATION STATUS Routine OTHERS 06/05/22 22:[address] ABD/PEL WO RENAL STONE PROT Stat RADS 06/05/22 20:46 Completed Medications Generic Name Dose Route Start Last Admin Trade Name Freq PRN Reason Stop Dose Admin Enoxaparin Sodium 40 mg 06/06/22 09:00 Enoxaparin Sodium 40 Mg/0.4 Ml Syr SUBCUT DAILY CATIA Hydromorphone HCl 1 mg 06/05/22 22:42 Hydromorphone Hcl 1 Mg/Ml Syringe IVP Q4HR PRN Severe Pain Sodium Chloride 1,000 mls @ 125 mls/hr 06/05/22 23:00 Sodium Chloride IV .Q8H CATIA Piperacillin Sod/Tazobactam 50 mls @ 50 mls/hr 06/06/22 06:00 Sod 3.375 gm/ Sodium Chloride IV 06/09/22 05:59 Q6HR CATIA Ondansetron HCl 4 mg 06/05/22 22:42 Ondansetron Hcl/Pf 4 Mg/2 Ml Sdv IVP Q6H PRN Nausea / Vomiting Sodium Chloride 1 syr 06/05/22 20:46 0.9% Sodium Chloride 10 Ml Disp.Syrin IVF PRN PRN To flush IV Discontinued Medications Generic Name Dose Route Start Last Admin Trade Name Freq PRN Reason Stop Dose Admin Hydromorphone HCl 1 mg 06/05/22 20:46 06/05/22 21:33 Hydromorphone Hcl 1 Mg/Ml Syringe IVP 06/05/22 20:47 1 mg ONCE STA Administration Sodium Chloride 1,000 mls @ 1,000 mls/hr 06/05/22 20:46 06/05/22 21:33 Sodium Chloride IV 06/05/22 21:45 1,000 mls/hr BOLUS STA Administration Piperacillin Sod/Tazobactam 100 mls @ 100 mls/hr 06/05/22 22:02 06/05/22 22:11 Sod 3.375 gm/ Sodium Chloride IV 06/05/22 23:01 100 mls/hr ONCE ONE Administration Ketorolac Tromethamine 30 mg 06/05/22 20:46 06/05/22 21:28 Ketorolac Tromethamine 30 Mg/Ml Vial IVP 06/05/22 20:47 30 mg ONCE STA Administration Vital Signs: Temp Pulse Resp BP Pulse Ox 06/05/22 20:09 99 F 106 H 20 140/96 H 95 Discharge Plan Discharge Patient Disposition: ADMITTED INPATIENT Discharge Problem: Diverticulitis of sigmoid colon ED Provider: JING KAPOOR Physician Progress Note: []
[2022-06-05 20:59] LABS: BASOPHILS # (AUTO) 0.1 K/uL (0-0.2); BASOPHILS % (AUTO) 0.4 % (0.0-3.0); EOSINOPHILS % (AUTO) 0.2 % (0.0-7.0); HEMATOCRIT 41.5 % (42.0-52.0); HEMOGLOBIN 14.4 g/dl (14.0-18.0); IMMATURE GRANULOCYTE # (AUTO) 0.1 (0.0-1.0); IMMATURE GRANULOCYTE % (AUTO) 0.4 % (0.0-5.0); LYMPHOCYTES # (AUTO) 1.4 K/uL (0.60-3.4); LYMPHOCYTES % (AUTO) 9.4 (10.0-50.0); MEAN CORPUSCULAR HEMOGLOBIN 30.8 pg (27.0-31.0); MEAN CORPUSCULAR HGB CONC 34.7 (31.8-35.4); MEAN CORPUSCULAR VOLUME 88.9 fl (80.0-94.0); MONOCYTES % (AUTO) 6.4 (0-10); NEUTROPHILS # (AUTO) 12.4 K/ul (2.0-6.9); NEUTROPHILS % (AUTO) 83.2 % (42.2-75.2); PLATELET COUNT 232 10^3/uL (140-440); RDW COEFFICIENT OF VARIATION 12.5 % (11.6-14.8); RED BLOOD COUNT 4.67 10^6/ul (4.70-6.10); WHITE BLOOD COUNT 14.86 K/ul (4.2-10.2)
[2022-06-05 21:10] LABS: ALANINE AMINOTRANSFERASE 23.5 U/L (0-50); ALBUMIN 4.38 g/dL (3.5-5.0); ALKALINE PHOSPHATASE 62.9 U/L (38-126); AMYLASE 63.7 U/L (30-110); ASPARTATE AMINO TRANSFERASE 23.6 U/L (17-59); BILIRUBIN,TOTAL 0.61 mg/dL (0.2-1.3); BLOOD UREA NITROGEN 17.9 mg/dL (9-20); CALCIUM 8.96 mg/dL (8.4-10.2); CARBON DIOXIDE 29.4 mmol/L (22-30.0); CHLORIDE 102.2 mmol/L (98-107); CREATININE 1.04 mg/dL (0.60-1.10); GLUCOSE 118.7 mg/dL (74-106); LIPASE 50.2 U/L (23-300); POTASSIUM 4.14 mmol/L (3.5-5.1); SODIUM 138.1 mmol/L (134.5-145); TOTAL PROTEIN 7.43 g/dL (6.3-8.2)
--- NOTE | 2022-06-05 21:45 | CT ---
EXAM: CT ABDOMEN AND PELVIS WITHOUT CONTRAST HISTORY: Abdominal and pelvic pain. TECHNIQUE: CT acquisition of the abdomen and pelvis from the lower thorax through the pelvis without IV contrast administration. 2-D coronal and sagittal reformatted images were obtained from the axial source images. Oral Contrast: None. CT Dose Reduction Techniques Performed: Yes. COMPARISON: Contrast enhanced CT scan of the abdomen and pelvis dated 05/24/2022 FINDINGS: Lower Thorax: Within normal limits. Liver: No mass. Mildly diffusely decreased attenuation. Normal in size Biliary: The gallbladder and bile ducts are normal. Pancreas: No mass or evidence of pancreatitis. No duct dilation. Spleen: No mass. No splenomegaly. Adrenals: No mass. Kidneys/Ureters: No renal mass. No calculus or hydronephrosis. GI Tract: Diverticulosis of the descending colon and sigmoid colon. Diffuse thickening of the wall o f the mid sigmoid colon with marked adjacent mesenteric edema. Microperforation with 4 mm gas bubble visualized on coronal image 45 and axial image 120. No abscess. No obvious mass. The appendix is w ell seen and appears normal. Peritoneal Cavity: No ascites. Retroperitoneum: No fluid collection. Lymph Nodes: No lymphadenopathy. Vasculature: There are aortic calcifications. No aortic or iliac aneurysm within limitations of nonc ontrast examination. Pelvis: No free fluid. Bladder is normal. Bones/Soft Tissues: There is no fracture or lytic lesion. Fat-containing umbilical hernia measuring 2.2 x 3.1 cm. IMPRESSION: 1. Diverticulosis of the descending colon and sigmoid colon. Diffuse thickening of the wall of the mid sigmoid colon with marked adjacent mesenteric edema. Microperforation with gas bubble measuring 4 mm. The appearance is worse than seen on 05/24/2022. This is likely due to diverticulitis. Neopl asm may also give this appearance. Clinical correlation and follow-up advised. 2. Atherosclerosis. 3. Small fat-containing umbilical hernia. 4. Fatty metamorphosis of the liver. 5. Otherwise unremarkable noncontrast CT scan of the abdomen and pelvis. All CT scans are performed using dose optimization techniques as appropriate to the performed exam an d include at least one of the following: Automated exposure control, adjustment of the mA and/or kV according t o size, and the use of iterative reconstruction technique.
[2022-06-05] MEDS ORDERED: ZOSYN 3.375 GM 3.375 GM in SODIUM CHLORIDE 100ML 100 ML IV ONE (22:02)
[2022-06-05 22:06] LABS: BILIRUBIN,URINE Negative (NEGATIVE); CLARITY,URINE Clear (CLEAR); COLOR,URINE Yellow (YELLOW); GLUCOSE, URINE (UA) Negative (NEGATIVE); KETONES,URINE Trace (NEGATIVE); LEUKOCYTE ESTERASE ,URINE Negative (NEGATIVE); NITRITE,URINE Negative (NEGATIVE); PH,URINE 5.5 (5-9); PROTEIN,URINE Negative (NEGATIVE); URINE, BLOOD Negative (NEGATIVE); UROBILINOGEN,URINE 0.2 (0.2)
[2022-06-05] MEDS ORDERED: ZOFRAN 4 MG/2 ML IVP PRN (22:42)
[2022-06-06 00:11] LABS: SARS COV-2 RNA RAPID NAAT NEGATIVE (NEGATIVE)
[2022-06-06] MEDS: SODIUM CHLORIDE 1,000 ML IV SCH ×2 (00:47→09:27)
[2022-06-06 00:50] VITALS: BMI 34.8
[2022-06-06] MEDS: DILAUDID 1 MG/ML SYRINGE IVP PRN ×4 (01:30→13:50)
[2022-06-06 05:54] LABS: BASOPHILS # (AUTO) 0.1 K/uL (0-0.2); BASOPHILS % (AUTO) 0.5 % (0.0-3.0); EOSINOPHILS # (AUTO) 0.1 K/ul (0.0-0.7); EOSINOPHILS % (AUTO) 0.5 % (0.0-7.0); HEMATOCRIT 38.1 % (42.0-52.0); HEMOGLOBIN 12.8 g/dl (14.0-18.0); IMMATURE GRANULOCYTE % (AUTO) 0.2 % (0.0-5.0); LYMPHOCYTES # (AUTO) 1.7 K/uL (0.60-3.4); LYMPHOCYTES % (AUTO) 13.9 (10.0-50.0); MEAN CORPUSCULAR HEMOGLOBIN 30.4 pg (27.0-31.0); MEAN CORPUSCULAR HGB CONC 33.6 (31.8-35.4); MEAN CORPUSCULAR VOLUME 90.5 fl (80.0-94.0); MONOCYTES # (AUTO) 1.1 K/uL (0.4-2.0); MONOCYTES % (AUTO) 8.4 (0-10); NEUTROPHILS # (AUTO) 9.5 K/ul (2.0-6.9); NEUTROPHILS % (AUTO) 76.5 % (42.2-75.2); PLATELET COUNT 191 10^3/uL (140-440); RDW COEFFICIENT OF VARIATION 12.7 % (11.6-14.8); RED BLOOD COUNT 4.21 10^6/ul (4.70-6.10); WHITE BLOOD COUNT 12.44 K/ul (4.2-10.2)
[2022-06-06] MEDS ORDERED: ZOSYN 3.375 GM 3.375 GM in SODIUM CHLORIDE 100ML 50 ML IV SCH (06:00)
[2022-06-06 06:07] LABS: ALANINE AMINOTRANSFERASE 18.9 U/L (0-50); ALBUMIN 3.8 g/dL (3.5-5.0); ALKALINE PHOSPHATASE 53.1 U/L (38-126); ASPARTATE AMINO TRANSFERASE 15.3 U/L (17-59); BILIRUBIN,TOTAL 0.83 mg/dL (0.2-1.3); BLOOD UREA NITROGEN 17.8 mg/dL (9-20); CALCIUM 8.11 mg/dL (8.4-10.2); CARBON DIOXIDE 28.3 mmol/L (22-30.0); CHLORIDE 104.3 mmol/L (98-107); CREATININE 1.15 mg/dL (0.60-1.10); GLUCOSE 117.2 mg/dL (74-106); POTASSIUM 3.98 mmol/L (3.5-5.1); SODIUM 137.8 mmol/L (134.5-145); TOTAL PROTEIN 6.7 g/dL (6.3-8.2)
[2022-06-06] MEDS ORDERED: ZYLOPRIM PO SCH (09:00)
[2022-06-06] MEDS ORDERED: LOVENOX SUBCUT SCH (09:00)
[2022-06-06] MEDS ORDERED: ZOSYN 3.375 GM 3.375 GM in SODIUM CHLORIDE 100ML 100 ML IV SCH (12:00)
--- NOTE | 2022-06-06 12:24 | PCM.DC ---
Final Diagnosis: dx. perforated diverticulitis Physical Exam Appearance: Well-appearing Ill-appearing: None Pain Distress: Mild Eyes: Conjunctiva clear ENT: Not Examined Neck: Supple Respiratory: Airway patent Cardiovascular: Not Examined GI/: Tender Musculoskeletal: ROM intact Skin: Normal color Neurological: Alert and Oriented Psychiatric: Affect appropriate Reason for Hospitalization: abdominal pain Prognosis/Condition at Discharge: good Medications at Discharge: zosyn, dilaudid, zofran, iv ns Lab/Diagnostics: ct scan shows perforated diverticulitis Education Provided to Patient and Family: none Discharge Disposition: Transfer Hospital Course: stable Plan: transfer to [facility], accepted by Dr Scott
[2022-06-06 14:42] VITALS: BP 131/75; TEMP 97.6
[2022-06-06] MEDS ORDERED: DILAUDID 1 MG/ML SYRINGE IVP STA (17:26)
[2022-06-06] MEDS ORDERED: DILAUDID 1 MG/ML SYRINGE ONE (17:30)
== END 2022-06-06 17:30 | disposition short-term general hospital (02) | DRG 392 ==
LOC: ED 20:08 → MEDSURG A 06-06 00:15
PROVIDERS: ADMIT Internal Medicine Geriatric Medicine; ATTEND Internal Medicine Geriatric Medicine